=== PATIENT | female | born 1955 | race African-American/Black ===

== ENCOUNTER 2025-07-19 22:55 | Emergency (ER) | payer OTHER ==
[~2025-07-19] VITALS: Ht 167.6 cm; Wt 73.0 kg
[2025-07-19 22:57] VITALS: TEMP 36.9; O2SAT 98
[2025-07-19 23:42] LABS: BASOPHILS % 0.6 % (0.0-2.0); EOSINOPHILS % 0.4 % (0.0-5.0); HEMATOCRIT. 41.2 % (36.0-48.0); HEMOGLOBIN. 13.6 g/dL (12.0-16.0); LYMPHOCYTES % 21.3 % (20.0-50.0); MEAN PLATELET VOLUME 7.1 fl (7.4-10.4); MONOCYTES % 8.3 % (2.0-8.0); NEUTROPHILS % 69.4 % (40.0-76.0); PLATELET 322 x1000/uL (130-400); RED BLOOD CELL COUNT 5.19 mill/uL (4.2-5.4); RED CELL DISTRIBUTION WIDTH 14.6 % (11.6-14.6)
[2025-07-19 23:52] LABS: INR 1.0
[2025-07-19 23:55] LABS: CREATININE 1.5 mg/dL (0.6-1.0); UREA NITROGEN BLOOD 15 mg/dL (9-23)
[2025-07-19 23:56] LABS: TROPONIN I HIGH SENSITIVITY 32 ng/L (3.0-34)
[2025-07-19 23:57] LABS: ASPARTATE AMINOTRANSFERASE 36 IU/L (<34)
[2025-07-19 23:58] LABS: BILIRUBIN DIRECT 0.4 mg/dL (<=3.0); BILIRUBIN TOTAL 0.8 mg/dL (0.1-1.0); PROTEIN TOTAL 7.0 g/dL (6.0-8.3)
[2025-07-20] MEDS: SODIUM CHLORIDE 0.9% 500 ML IV ONE (02:39)
[2025-07-20] MEDS: POTASSIUM CHLORIDE 20MEQ/PACKET PO NR (02:39)
[2025-07-20] MEDS: KCL 20MEQ/100ML PREMIX 100 ML IV NR (02:39)
[2025-07-20] MEDS: CEFTRIAXONE 2GM/50ML 50 ML IV ONE (03:28)
[2025-07-20 03:51] LABS: TROPONIN I HIGH SENSITIVITY 28 ng/L (3.0-34)
[2025-07-20 06:18] VITALS: BP 144/80; PULSE 106; RESP 22; O2SAT 100
== END 2025-07-20 06:58 | disposition short-term general hospital (02) ==
LOC: ER 22:55 → EDBEDREQ 07-20 05:34 → EDBEDREQTM 07-20 05:34 → ER 07-20 06:58 → CMPBEDREQ 07-20 08:23
DX: R41.82 Altered mental status, unspecified (principal); G93.40 Encephalopathy, unspecified; E87.6 Hypokalemia; E86.0 Dehydration; I48.91 Unspecified atrial fibrillation; I10 Essential (primary) hypertension; E11.9 Type 2 diabetes mellitus without complications; Z79.899 Other long term (current) drug therapy; Z88.8 Allergy status to other drugs, medicaments and biological substances
CPT/HCPCS: 80076; 80048; 80320; 83880; 83690; 85025; 85610; 85730; 84484 ×2; 36415 ×2; 71045; 70450; 74176; 93005; 99285; 96367; 96365; J0696; J3480; G0480